=== PATIENT | female | born 1990 | race Hispanic/Latino ===

== ENCOUNTER 2021-12-28 22:07 | Day surgery (SDC) | payer OTHER ==
[2021-12-28 22:37] VITALS: BMI 35.2
[2021-12-29] MEDS ORDERED: hydrALAZINE 20 MG/ML VIAL SLOW IVP PRN (00:19)
== END 2021-12-29 00:12 | disposition home or self-care (01) ==
LOC: CSHLD/OP 22:07
PROVIDERS: ATTEND Family Medicine
DX: O47.03 False labor before 37 completed weeks of gestation, third trimester (principal); O36.8130 Decreased fetal movements, third trimester, not applicable or unspecified; O24.419 Gestational diabetes mellitus in pregnancy, unspecified control; Z98.891 History of uterine scar from previous surgery; Z3A.35 35 weeks gestation of pregnancy
CPT/HCPCS: 99282